=== PATIENT | male | born 1975 | race Caucasian/White ===

== ENCOUNTER 2024-11-24 20:05 | Inpatient (IN) | payer OTHER ==
[~2024-11-24] VITALS: Ht 177.8 cm; Wt 164.2 kg
[2024-11-24 20:32] VITALS: O2SAT 96
[2024-11-24] MEDS: ALBUTEROL FS 2.5 MG/3 ML VIAL.NEB NEB ONE (20:32)
[2024-11-24] MEDS: IPRATROPIUM NEB FS 0.5 MG/2.5 ML AMPUL.NEB NEB ONE (20:32)
[2024-11-24] MEDS ORDERED: ALBUTEROL FS 2.5 MG/3 ML VIAL.NEB ONE (20:34)
[2024-11-24] MEDS ORDERED: IPRATROPIUM NEB FS 0.5 MG/2.5 ML AMPUL.NEB ONE (20:34)
[2024-11-24] MEDS ORDERED: methylPREDNISolone SOD SUCC 125 MG/2ML VIAL ONE (20:38)
[2024-11-24] MEDS: methylPREDNISolone SOD SUCC 125 MG/2ML VIAL IV ONE (20:41)
[2024-11-24] MEDS ORDERED: ACETAMINOPHEN ES 500 MG TABLET ONE (20:51)
[2024-11-24 20:52] LABS: BASOPHILS % (AUTO) 0.1 % (0.0-2.0); HEMATOCRIT 41 % (39-51); HEMOGLOBIN 14.1 g/dL (13.5-17.5); LYMPHOCYTES # (AUTO) 0.3 K/uL (0.8-4.8); LYMPHOCYTES % (AUTO) 1.9 % (20.0-44.0); MEAN CORPUSCULAR HEMOGLOBIN 29 PG (26.0-33.0); MEAN CORPUSCULAR HGB CONC 34 g/dl (31.0-36.0); MEAN CORPUSCULAR VOLUME 86 fL (80-96); MONOCYTES # (AUTO) 0.5 K/uL (0.1-1.30); MONOCYTES % (AUTO) 3.2 % (2.0-12.0); NEUTROPHILS # (AUTO) 15.4 K/uL (1.8-8.9); NEUTROPHILS % (AUTO) 94.8 % (43.0-81.0); PLATELET COUNT (AUTO) 198 K/uL (150-450); RED CELL DISTRIBUTION WIDTH 14.4 % (11.5-15.0); WHITE BLOOD COUNT (AUTO) 16.2 K/uL (4.3-11.0)
[2024-11-24] MEDS: ACETAMINOPHEN ES 500 MG TABLET PO ONE (20:52)
[2024-11-24 21:18] LABS: LACTIC ACID 1.2 mmol/L (0.4-2.0)
[2024-11-24 21:20] VITALS: O2SAT 99
[2024-11-24 21:23] LABS: CALCIUM, SERUM 8.4 mg/dL (8.5-10.1); CHLORIDE 101 mmol/L (98-107); CREATININE 0.9 mg/dL (0.6-1.3); GLUCOSE 216 mg/dL (74-106); NT-PRO BNP 11 pg/mL (0-125); SODIUM SERUM 138 mmol/L (136-145); UREA NITROGEN, BLOOD 13 mg/dL (7-18)
[2024-11-24 21:28] LABS: CARBON DIOXIDE 24 mmol/L (21-32)
[2024-11-24 21:32] VITALS: O2SAT 99
[2024-11-24] MEDS ORDERED: VANCOMYCIN 1 GM /D5W 250 ML PB IV ONE (21:50)
[2024-11-24] MEDS ORDERED: dexaMETHasone SOD PHOSPHATE 1 ML ONE (21:50)
[2024-11-24] MEDS ORDERED: CEFEPIME 1 GM VIAL ONE (21:50)
[2024-11-24] MEDS ORDERED: ZOLPIDEM TARTRATE 5 MG TABLET PO PRN (22:00)
[2024-11-24] MEDS ORDERED: ONDANSETRON HCL/PF 4 MG/2 ML VIAL IVP PRN (22:00)
[2024-11-24] MEDS ORDERED: Z GUARD REMEDY 4 OZ OINT TP PRN (22:00)
[2024-11-24] MEDS: CEFEPIME 1 GM in IV D5W 50 ML IV ONE (22:03)
[2024-11-24] MEDS: dexaMETHasone SOD PHOSPHATE 10 MG/ML VIAL IV ONE (22:03)
[2024-11-24] MEDS: VANCOMYCIN 1 GM in IV D5W 250 ML IV ONE ×2 (22:25→23:00)
[2024-11-24] MEDS ORDERED: VANCOMYCIN 2 GM in IV D5W 500 ML IV ONE (23:00)
[2024-11-24 23:26] VITALS: O2SAT 98
[2024-11-25] VITALS (20 sets, daily range): BP systolic 114–164; BP diastolic 66–100; TEMP 97.3–99.2; O2SAT 92–96
[2024-11-25] MEDS ORDERED: IPRATROPIUM NEB FS 0.5 MG/2.5 ML AMPUL.NEB NEB SCH (01:30)
[2024-11-25] MEDS ORDERED: ALBUTEROL FS 2.5 MG/3 ML VIAL.NEB NEB SCH (01:30)
[2024-11-25] MEDS ORDERED: FUROSEMIDE 40 MG/4 ML VIAL ONE (01:36)
[2024-11-25] MEDS ORDERED: ENOXAPARIN SODIUM 40 MG/0.4 ML DISP.SYRIN SQ ONE (01:38)
[2024-11-25] MEDS: ENOXAPARIN SODIUM 40 MG/0.4 ML DISP.SYRIN SQ SCH (02:00)
[2024-11-25] MEDS: FUROSEMIDE 40 MG/4 ML VIAL IV ONE (02:00)
[2024-11-25] MEDS: ALBUTEROL FS 2.5 MG/3 ML VIAL.NEB NEB SCH (02:04)
[2024-11-25] MEDS: IPRATROPIUM NEB FS 0.5 MG/2.5 ML AMPUL.NEB NEB SCH (02:04)
[2024-11-25 03:53] LABS: ABG BASE EXCESS -1.4 mmol/L (-2.0-3.0); ABG PCO2 37.7 mmHg (35.0-48.0); ABG PH 7.403 (7.350-7.450); ABG PO2 93.4 mmHg (83.0-108.0); ABG TOTAL HEMOGLOBIN 15.2 G/dL (13.5-17.5); COHb 0.1 % (0.5-1.5); MetHb 0.3 % (0.0-1.5); O2Hb 96.6 % (94.0-97.0); SITE, ABG RIGHT RADIAL
[2024-11-25] MEDS ORDERED: CEFEPIME 1 GM VIAL ONE (05:36)
[2024-11-25] MEDS: CEFEPIME 2 GM in IV D5W 100 ML IV ONE (05:48)
[2024-11-25] MEDS: dexaMETHasone SOD PHOSPHATE 10 MG/ML VIAL IV SCH (08:27)
[2024-11-25] MEDS: PANTOPRAZOLE 40 MG VIAL IV SCH (08:27)
[2024-11-25] MEDS: VANCOMYCIN 1 GM in IV D5W 250ml IV SCH (08:28)
[2024-11-25] MEDS: LEVOFLOXACIN (250MG) 250 MG TABLET PO SCH (08:39)
[2024-11-25] MEDS ORDERED: NICOTINE PATCH (14MG) 14 MG PATCH.TD24 TD SCH (09:00)
[2024-11-25] MEDS: VANCOMYCIN 750 MG in IV D5W 250 ML IV SCH (09:45)
[2024-11-25 10:14] LABS: ABG BASE EXCESS -1.9 mmol/L (-2.0-3.0); ABG OXYGEN SATURATION 95.7 % (94.0-98.0); ABG PCO2 38.1 mmHg (35.0-48.0); ABG PH 7.391 (7.350-7.450); ABG TOTAL HEMOGLOBIN 14.9 G/dL (13.5-17.5); COHb 0.3 % (0.5-1.5); MetHb 0.4 % (0.0-1.5); SITE, ABG RIGHT RADIAL
[2024-11-25 10:36] LABS: HEMATOCRIT 41 % (39-51); HEMOGLOBIN 13.8 g/dL (13.5-17.5); LYMPHOCYTES # (AUTO) 0.4 K/uL (0.8-4.8); LYMPHOCYTES % (AUTO) 2.7 % (20.0-44.0); MEAN CORPUSCULAR HEMOGLOBIN 29 PG (26.0-33.0); MEAN CORPUSCULAR HGB CONC 34 g/dl (31.0-36.0); MEAN CORPUSCULAR VOLUME 86 fL (80-96); MONOCYTES # (AUTO) 0.4 K/uL (0.1-1.30); MONOCYTES % (AUTO) 2.9 % (2.0-12.0); NEUTROPHILS % (AUTO) 94.4 % (43.0-81.0); PLATELET COUNT (AUTO) 207 K/uL (150-450); RED BLOOD CELL COUNT(AUTO) 4.77 MIL/uL (4.5-6.0); RED CELL DISTRIBUTION WIDTH 14.6 % (11.5-15.0); WHITE BLOOD COUNT (AUTO) 14.9 K/uL (4.3-11.0)
[2024-11-25 10:38] LABS: ERYTHROCYTE SEDIMENTATION RATE 97 MM/HR (0-15)
[2024-11-25 10:41] LABS: ALBUMIN 2.8 g/dL (3.4-5.0); BILIRUBIN,TOTAL 0.5 mg/dL (0.2-1.0); CALCIUM, SERUM 8.5 mg/dL (8.5-10.1); CREATININE 1.1 mg/dL (0.6-1.3); MAGNESIUM 2.4 mg/dL (1.8-2.4); PHOSPHORUS 2.8 mg/dL (2.5-4.9); POTASSIUM 4.2 mmol/L (3.5-5.1)
[2024-11-25] MEDS: CEFEPIME 2 GM in IV D5W 100 ML IV SCH (12:00)
[2024-11-25] MEDS: LORAZEPAM 0.5 MG TABLET PO PRN (12:08)
[2024-11-25] MEDS: FUROSEMIDE 40 MG/4 ML VIAL IV SCH (13:42)
[2024-11-25] MEDS: ONDANSETRON HCL/PF 4 MG/2 ML VIAL IV PRN (16:47)
[2024-11-25] MEDS: ZOLPIDEM TARTRATE 5 MG TABLET PO PRN (22:48)
[2024-11-26] VITALS (26 sets, daily range): BP systolic 109–157; BP diastolic 62–100; TEMP 97.5–98.4; O2SAT 95–99
[2024-11-26] MEDS: ACETAMINOPHEN 325 MG TABLET PO PRN (00:33)
[2024-11-26 05:16] LABS: CALCIUM, SERUM 9.2 mg/dL (8.5-10.1); POTASSIUM 4.6 mmol/L (3.5-5.1)
[2024-11-26] MEDS: PANTOPRAZOLE 40 MG TABLET.DR PO SCH (08:49)
[2024-11-27] VITALS (24 sets, daily range): BP systolic 114–158; BP diastolic 55–95; TEMP 97.8–98.9; O2SAT 92–99
[2024-11-27 07:18] LABS: EOSINOPHILS % (AUTO) 0.1 % (0.0-6.0); HEMATOCRIT 40 % (39-51); HEMOGLOBIN 13.6 g/dL (13.5-17.5); LYMPHOCYTES # (AUTO) 0.8 K/uL (0.8-4.8); LYMPHOCYTES % (AUTO) 8.5 % (20.0-44.0); MEAN CORPUSCULAR HEMOGLOBIN 30 PG (26.0-33.0); MEAN CORPUSCULAR HGB CONC 34 g/dl (31.0-36.0); MEAN CORPUSCULAR VOLUME 87 fL (80-96); MONOCYTES # (AUTO) 0.5 K/uL (0.1-1.30); MONOCYTES % (AUTO) 4.8 % (2.0-12.0); NEUTROPHILS # (AUTO) 8.6 K/uL (1.8-8.9); NEUTROPHILS % (AUTO) 86.6 % (43.0-81.0); PLATELET COUNT (AUTO) 256 K/uL (150-450); RED BLOOD CELL COUNT(AUTO) 4.59 MIL/uL (4.5-6.0); RED CELL DISTRIBUTION WIDTH 14.4 % (11.5-15.0)
[2024-11-27 07:24] LABS: CALCIUM, SERUM 8.6 mg/dL (8.5-10.1); CREATININE 0.9 mg/dL (0.6-1.3); POTASSIUM 4.5 mmol/L (3.5-5.1)
[2024-11-27] MEDS: MAG HYDROX/AL HYDROX/SIMETH 30 ML UDC PO PRN (10:34)
[2024-11-27] MEDS: VANCOMYCIN HCL 1.25 GM in IV D5W 250 ML IV SCH (16:16)
[2024-11-27] MEDS: MAGNESIUM HYDROXIDE 30 ML UDC PO PRN (22:16)
[2024-11-28] VITALS (29 sets, daily range): BP systolic 124–157; BP diastolic 77–108; TEMP 97.7–98; O2SAT 90–98
[2024-11-28] MEDS: IV NS 0.9% 250 ML IV PRN (04:15)
[2024-11-28 04:31] LABS: CALCIUM, SERUM 8.4 mg/dL (8.5-10.1); POTASSIUM 4.4 mmol/L (3.5-5.1)
[2024-11-29] VITALS (11 sets, daily range): BP systolic 124–154; BP diastolic 69–89; TEMP 97.5–99.5; O2SAT 94–98
[2024-11-29 07:56] LABS: BASOPHILS % (AUTO) 0.1 % (0.0-2.0); EOSINOPHILS # (AUTO) 0.1 K/uL (0.0-0.7); EOSINOPHILS % (AUTO) 0.5 % (0.0-6.0); HEMATOCRIT 43 % (39-51); HEMOGLOBIN 14.8 g/dL (13.5-17.5); LYMPHOCYTES # (AUTO) 0.8 K/uL (0.8-4.8); LYMPHOCYTES % (AUTO) 7.1 % (20.0-44.0); MEAN CORPUSCULAR HEMOGLOBIN 30 PG (26.0-33.0); MEAN CORPUSCULAR HGB CONC 34 g/dl (31.0-36.0); MEAN CORPUSCULAR VOLUME 86 fL (80-96); MONOCYTES # (AUTO) 0.7 K/uL (0.1-1.30); MONOCYTES % (AUTO) 6.5 % (2.0-12.0); NEUTROPHILS # (AUTO) 9.8 K/uL (1.8-8.9); NEUTROPHILS % (AUTO) 85.8 % (43.0-81.0); PLATELET COUNT (AUTO) 289 K/uL (150-450); RED BLOOD CELL COUNT(AUTO) 4.99 MIL/uL (4.5-6.0); RED CELL DISTRIBUTION WIDTH 14.2 % (11.5-15.0); WHITE BLOOD COUNT (AUTO) 11.4 K/uL (4.3-11.0)
[2024-11-29 08:15] LABS: CALCIUM, SERUM 9.1 mg/dL (8.5-10.1); CREATININE 0.9 mg/dL (0.6-1.3); POTASSIUM 4.1 mmol/L (3.5-5.1)
[2024-11-29 10:07] LABS: BAND % (MANUAL) 1 % (0.0-5.0); LYMPHOCYTES % (MANUAL) 10 % (16-48); METAMYELOCYTES % 1 % (0-0); MONOCYTES % (MANUAL) 5 % (0-11.0); MYELOCYTES % 3 % (0-0); NEUTROPHILS % (MANUAL) 80 (42-76); PLATELET ESTIMATE ADEQUATE
[2024-11-29] MEDS: MAGNESIUM CITRATE 296 ML BOTTLE PO ONE (14:48)
[2024-11-29] MEDS: NA PHOS,M-B/NA PHOS,DI-BA 1 EA ENEMA RC SCH (23:32)
[2024-11-30] VITALS (9 sets, daily range): BP systolic 96–151; BP diastolic 59–85; TEMP 98.1–98.2; O2SAT 96–99
[2024-11-30 07:39] LABS: BASOPHILS % (AUTO) 0.1 % (0.0-2.0); EOSINOPHILS # (AUTO) 0.1 K/uL (0.0-0.7); EOSINOPHILS % (AUTO) 0.5 % (0.0-6.0); HEMATOCRIT 43 % (39-51); HEMOGLOBIN 14.8 g/dL (13.5-17.5); MEAN CORPUSCULAR HEMOGLOBIN 30 PG (26.0-33.0); MEAN CORPUSCULAR HGB CONC 35 g/dl (31.0-36.0); MEAN CORPUSCULAR VOLUME 85 fL (80-96); MONOCYTES # (AUTO) 1.2 K/uL (0.1-1.30); MONOCYTES % (AUTO) 9.7 % (2.0-12.0); NEUTROPHILS # (AUTO) 9.9 K/uL (1.8-8.9); NEUTROPHILS % (AUTO) 81.7 % (43.0-81.0); PLATELET COUNT (AUTO) 314 K/uL (150-450); RED BLOOD CELL COUNT(AUTO) 5.03 MIL/uL (4.5-6.0); RED CELL DISTRIBUTION WIDTH 14.1 % (11.5-15.0); WHITE BLOOD COUNT (AUTO) 12.1 K/uL (4.3-11.0)
[2024-11-30 08:00] LABS: CALCIUM, SERUM 8.9 mg/dL (8.5-10.1); POTASSIUM 3.6 mmol/L (3.5-5.1)
[2024-11-30] MEDS: ENSURE ENLIVE 237 ML LIQUID (VANILLA) PO SCH (10:00)
[2024-11-30 10:29] LABS: PLATELET ESTIMATE ADEQUATE
[2024-11-30 10:30] LABS: EOSINOPHILS % (MANUAL) 2 % (0-4); LYMPHOCYTES % (MANUAL) 9 % (16-48); MONOCYTES % (MANUAL) 12 % (0-11.0); MYELOCYTES % 4 % (0-0)
[2024-11-30 10:31] LABS: NEUTROPHILS % (MANUAL) 72 (42-76)
[2024-11-30 10:32] LABS: BAND % (MANUAL) 1 % (0.0-5.0)
[2024-12-01] VITALS (10 sets, daily range): BP systolic 113–131; BP diastolic 66–83; TEMP 97.7–99; O2SAT 94–100
[2024-12-01 07:46] LABS: BASOPHILS % (AUTO) 0.2 % (0.0-2.0); EOSINOPHILS # (AUTO) 0.1 K/uL (0.0-0.7); EOSINOPHILS % (AUTO) 1.2 % (0.0-6.0); HEMATOCRIT 41 % (39-51); HEMOGLOBIN 13.8 g/dL (13.5-17.5); LYMPHOCYTES # (AUTO) 1.1 K/uL (0.8-4.8); LYMPHOCYTES % (AUTO) 8.6 % (20.0-44.0); MEAN CORPUSCULAR HEMOGLOBIN 30 PG (26.0-33.0); MEAN CORPUSCULAR HGB CONC 34 g/dl (31.0-36.0); MEAN CORPUSCULAR VOLUME 87 fL (80-96); MONOCYTES # (AUTO) 1.4 K/uL (0.1-1.30); MONOCYTES % (AUTO) 11.4 % (2.0-12.0); NEUTROPHILS # (AUTO) 9.6 K/uL (1.8-8.9); NEUTROPHILS % (AUTO) 78.6 % (43.0-81.0); PLATELET COUNT (AUTO) 266 K/uL (150-450); RED BLOOD CELL COUNT(AUTO) 4.68 MIL/uL (4.5-6.0); RED CELL DISTRIBUTION WIDTH 14.6 % (11.5-15.0); WHITE BLOOD COUNT (AUTO) 12.2 K/uL (4.3-11.0)
[2024-12-01 08:06] LABS: CALCIUM, SERUM 8.6 mg/dL (8.5-10.1); CREATININE 0.8 mg/dL (0.6-1.3); POTASSIUM 4.4 mmol/L (3.5-5.1)
[2024-12-01 11:18] LABS: BAND % (MANUAL) 1 % (0.0-5.0); EOSINOPHILS % (MANUAL) 2 % (0-4); LYMPHOCYTES % (MANUAL) 14 % (16-48); MONOCYTES % (MANUAL) 3 % (0-11.0); MYELOCYTES % 2 % (0-0); NEUTROPHILS % (MANUAL) 78 (42-76)
[2024-12-01 11:20] LABS: ANISOCYTOSIS 1+; PLATELET ESTIMATE ADEQUATE; STOMATOCYTES 1+
[2024-12-02] VITALS (10 sets, daily range): BP systolic 123–129; BP diastolic 60–88; TEMP 97.8–98.6; O2SAT 93–99
[2024-12-03] VITALS (9 sets, daily range): BP systolic 97–138; BP diastolic 69–80; TEMP 97.7–98.7; O2SAT 94–98
[2024-12-03 06:16] LABS: BASOPHILS % (AUTO) 0.2 % (0.0-2.0); EOSINOPHILS # (AUTO) 0.4 K/uL (0.0-0.7); EOSINOPHILS % (AUTO) 2.4 % (0.0-6.0); HEMATOCRIT 39 % (39-51); HEMOGLOBIN 13.5 g/dL (13.5-17.5); LYMPHOCYTES # (AUTO) 1.1 K/uL (0.8-4.8); LYMPHOCYTES % (AUTO) 6.2 % (20.0-44.0); MEAN CORPUSCULAR HEMOGLOBIN 30 PG (26.0-33.0); MEAN CORPUSCULAR HGB CONC 35 g/dl (31.0-36.0); MEAN CORPUSCULAR VOLUME 85 fL (80-96); MONOCYTES # (AUTO) 1.6 K/uL (0.1-1.30); MONOCYTES % (AUTO) 8.8 % (2.0-12.0); NEUTROPHILS # (AUTO) 15.3 K/uL (1.8-8.9); NEUTROPHILS % (AUTO) 82.4 % (43.0-81.0); PLATELET COUNT (AUTO) 251 K/uL (150-450); RED BLOOD CELL COUNT(AUTO) 4.57 MIL/uL (4.5-6.0); RED CELL DISTRIBUTION WIDTH 14.4 % (11.5-15.0); WHITE BLOOD COUNT (AUTO) 18.5 K/uL (4.3-11.0)
[2024-12-03 06:45] LABS: CALCIUM, SERUM 8.6 mg/dL (8.5-10.1); CREATININE 0.8 mg/dL (0.6-1.3); POTASSIUM 4.2 mmol/L (3.5-5.1)
[2024-12-03 11:04] LABS: BAND % (MANUAL) 2 % (0.0-5.0); EOSINOPHILS % (MANUAL) 1 % (0-4); LYMPHOCYTES % (MANUAL) 10 % (16-48); MONOCYTES % (MANUAL) 10 % (0-11.0); NEUTROPHILS % (MANUAL) 77 (42-76)
[2024-12-03 11:05] LABS: ANISOCYTOSIS 1+; PLATELET ESTIMATE ADEQUATE; STOMATOCYTES 1+
[2024-12-03] MEDS ORDERED: PEG 3350/NA SULF,BICARB,CL/KCL 4,000 ML BOTTLE ONE (20:56)
[2024-12-03] MEDS: PEG 3350/NA SULF,BICARB,CL/KCL 4,000 ML BOTTLE PO ONE (21:28)
[2024-12-04] VITALS (14 sets, daily range): BP systolic 121–136; BP diastolic 69–81; TEMP 98.1–99; O2SAT 95–98
[2024-12-04 07:23] LABS: BASOPHILS % (AUTO) 0.1 % (0.0-2.0); EOSINOPHILS # (AUTO) 0.4 K/uL (0.0-0.7); EOSINOPHILS % (AUTO) 2.2 % (0.0-6.0); HEMATOCRIT 38 % (39-51); LYMPHOCYTES % (AUTO) 5.9 % (20.0-44.0); MEAN CORPUSCULAR HEMOGLOBIN 30 PG (26.0-33.0); MEAN CORPUSCULAR HGB CONC 35 g/dl (31.0-36.0); MEAN CORPUSCULAR VOLUME 85 fL (80-96); MONOCYTES # (AUTO) 1.2 K/uL (0.1-1.30); MONOCYTES % (AUTO) 6.8 % (2.0-12.0); NEUTROPHILS # (AUTO) 14.5 K/uL (1.8-8.9); PLATELET COUNT (AUTO) 221 K/uL (150-450); RED BLOOD CELL COUNT(AUTO) 4.39 MIL/uL (4.5-6.0); RED CELL DISTRIBUTION WIDTH 14.2 % (11.5-15.0)
[2024-12-04 07:45] LABS: CALCIUM, SERUM 8.7 mg/dL (8.5-10.1); CREATININE 0.8 mg/dL (0.6-1.3); POTASSIUM 3.9 mmol/L (3.5-5.1)
[2024-12-04] MEDS: METOCLOPRAMIDE HCL 10 MG TABLET PO SCH (08:09)
[2024-12-04 10:55] LABS: EOSINOPHILS % (MANUAL) 3 % (0-4); LYMPHOCYTES % (MANUAL) 7 % (16-48); MONOCYTES % (MANUAL) 6 % (0-11.0); MYELOCYTES % 3 % (0-0); NEUTROPHILS % (MANUAL) 81 (42-76); PLATELET ESTIMATE ADEQUATE
[2024-12-04 10:57] LABS: ANISOCYTOSIS 1+
[2024-12-04] MEDS ORDERED: CT SWABBABLE VALVE TRANS SET 1 EA INFUS.SET MC ONE (12:10)
[2024-12-04] MEDS ORDERED: IOHEXOL-300 100 ML VIAL IV ONE (12:10)
[2024-12-04] MEDS ORDERED: IV NS 0.9% 250 ML IV ONE (12:11)
[2024-12-05] VITALS (11 sets, daily range): BP systolic 118–139; BP diastolic 68–102; TEMP 98.1–98.4; O2SAT 92–98
[2024-12-05 07:05] LABS: BASOPHILS % (AUTO) 0.3 % (0.0-2.0); EOSINOPHILS # (AUTO) 0.3 K/uL (0.0-0.7); EOSINOPHILS % (AUTO) 2.4 % (0.0-6.0); HEMATOCRIT 36 % (39-51); HEMOGLOBIN 12.2 g/dL (13.5-17.5); LYMPHOCYTES % (AUTO) 7.6 % (20.0-44.0); MEAN CORPUSCULAR HEMOGLOBIN 29 PG (26.0-33.0); MEAN CORPUSCULAR HGB CONC 34 g/dl (31.0-36.0); MEAN CORPUSCULAR VOLUME 87 fL (80-96); MONOCYTES # (AUTO) 0.9 K/uL (0.1-1.30); MONOCYTES % (AUTO) 7.3 % (2.0-12.0); NEUTROPHILS # (AUTO) 10.4 K/uL (1.8-8.9); NEUTROPHILS % (AUTO) 82.4 % (43.0-81.0); PLATELET COUNT (AUTO) 207 K/uL (150-450); RED BLOOD CELL COUNT(AUTO) 4.16 MIL/uL (4.5-6.0); RED CELL DISTRIBUTION WIDTH 14.2 % (11.5-15.0); WHITE BLOOD COUNT (AUTO) 12.7 K/uL (4.3-11.0)
[2024-12-05 07:59] LABS: CALCIUM, SERUM 8.8 mg/dL (8.5-10.1); CREATININE 0.8 mg/dL (0.6-1.3); POTASSIUM 3.7 mmol/L (3.5-5.1)
[2024-12-05 08:36] LABS: BAND % (MANUAL) 2 % (0.0-5.0); LYMPHOCYTES % (MANUAL) 7 % (16-48); MONOCYTES % (MANUAL) 6 % (0-11.0)
[2024-12-05 08:37] LABS: EOSINOPHILS % (MANUAL) 2 % (0-4); METAMYELOCYTES % 1 % (0-0); MYELOCYTES % 7 % (0-0); NEUTROPHILS % (MANUAL) 75 (42-76); PLATELET ESTIMATE ADEQUATE
[2024-12-05] MEDS ORDERED: DIATR MEGLU/DIATRIZOATE SODIUM 120 ML BOTTLE (GASTROGRAPHIN) ONE (10:16)
[2024-12-06] VITALS (10 sets, daily range): BP systolic 110–125; BP diastolic 68–74; TEMP 97.9–98.8; O2SAT 95–99
[2024-12-07 02:09] VITALS: O2SAT 95
[2024-12-07 02:24] VITALS: O2SAT 99
[2024-12-07 07:20] VITALS: O2SAT 96
[2024-12-07 07:39] VITALS: O2SAT 99
[2024-12-07 07:59] LABS: CALCIUM, SERUM 8.8 mg/dL (8.5-10.1); CREATININE 0.8 mg/dL (0.6-1.3); POTASSIUM 3.6 mmol/L (3.5-5.1)
[2024-12-07 08:00] VITALS: BP 124/74; TEMP 97.5; O2SAT 97
[2024-12-07 08:17] LABS: BASOPHILS % (AUTO) 0.5 % (0.0-2.0); EOSINOPHILS # (AUTO) 0.2 K/uL (0.0-0.7); EOSINOPHILS % (AUTO) 2.4 % (0.0-6.0); HEMATOCRIT 35 % (39-51); LYMPHOCYTES # (AUTO) 1.4 K/uL (0.8-4.8); LYMPHOCYTES % (AUTO) 14.1 % (20.0-44.0); MEAN CORPUSCULAR HEMOGLOBIN 29 PG (26.0-33.0); MEAN CORPUSCULAR HGB CONC 34 g/dl (31.0-36.0); MEAN CORPUSCULAR VOLUME 86 fL (80-96); MONOCYTES # (AUTO) 1.1 K/uL (0.1-1.30); MONOCYTES % (AUTO) 10.6 % (2.0-12.0); NEUTROPHILS # (AUTO) 7.2 K/uL (1.8-8.9); NEUTROPHILS % (AUTO) 72.4 % (43.0-81.0); PLATELET COUNT (AUTO) 230 K/uL (150-450); RED BLOOD CELL COUNT(AUTO) 4.08 MIL/uL (4.5-6.0); RED CELL DISTRIBUTION WIDTH 14.2 % (11.5-15.0)
[2024-12-07] MEDS: dexaMETHasone SOD PHOSPHATE 10 MG/ML VIAL IV SCH (08:27)
[2024-12-07] MEDS ORDERED: LEVO250T59 PO (09:08)
[2024-12-07 09:10] LABS: LYMPHOCYTES % (MANUAL) 15 % (16-48); MONOCYTES % (MANUAL) 10 % (0-11.0); MYELOCYTES % 2 % (0-0); NEUTROPHILS % (MANUAL) 73 (42-76); PLATELET ESTIMATE ADEQUATE
== END 2024-12-07 11:15 | disposition home or self-care (01) | DRG 720 ==
LOC: ER 20:14 → ICU 11-25 02:34 → TELE 11-28 22:26 → MED 12-01 10:51
PROVIDERS: ADMIT Nurse Practitioner Acute Care; ATTEND Internal Medicine
PROC: 0DB68ZX Excision of Stomach, Via Natural or Artificial Opening Endoscopic, Diagnostic (ICD-10-PCS; principal; 2024-12-03)
DX: A41.9 Sepsis, unspecified organism (principal); J96.01 Acute respiratory failure with hypoxia; J15.69 Pneumonia due to other Gram-negative bacteria; J44.0 Chronic obstructive pulmonary disease with (acute) lower respiratory infection; J44.1 Chronic obstructive pulmonary disease with (acute) exacerbation; K56.7 Ileus, unspecified; Z68.43 Body mass index [BMI] 50.0-59.9, adult; E66.01 Morbid (severe) obesity due to excess calories; E78.5 Hyperlipidemia, unspecified; K80.20 Calculus of gallbladder without cholecystitis without obstruction; R13.10 Dysphagia, unspecified; Z59.00 Homelessness unspecified; Z71.6 Tobacco abuse counseling; R65.20 Severe sepsis without septic shock; F17.210 Nicotine dependence, cigarettes, uncomplicated; K29.70 Gastritis, unspecified, without bleeding; E66.9 Obesity, unspecified; Z71.3 Dietary counseling and surveillance; G47.33 Obstructive sleep apnea (adult) (pediatric); Z20.822 Contact with and (suspected) exposure to COVID-19; I10 Essential (primary) hypertension
CPT/HCPCS: 36415; 36600; 71045-TC; 74018; 74250-TC; 76700-TC; 80048-TC; 80053-TC; 80202-TC; 82803-TC; 83605-TC; 83735-TC; 83880; 84100-TC; 84484-TC; 85025-TC; 85378-TC; 85652-TC; 86140-TC; 87040-TC; 87081-TC; 93307-TC; 94660; 94760-TC; 94762-TC; 94799-TC; 97110-TC; 97116-TC; 97530-TC; 97535-TC; A4223; G0378; J0692; J1100; J1650; J1940; J2405; J2470; J2704; J2919; J3370; J3371; J7030; J7050; J7060; J8597; Q9963; Q9967